=== PATIENT | female | born 1975 | race Caucasian/White ===

== ENCOUNTER 2020-01-10 17:24 | Emergency (ER) | payer OTHER, MEDICAID, SELFPAY ==
--- NOTE | ~2020-01-10 | XR_ITS ---
EXAMINATION: XR pelvis 1-2V DATE: 01/10/2020 18:35 INDICATION: Left hip pain post fall TECHNIQUE: An anteroposterior view of the pelvis was obtained. COMPARISON: CT abdomen and pelvis dated 02/27/2019 FINDINGS: Bone alignment is normal. No fracture. Joint spaces are normal. Soft tissues are unremarkable. IMPRESSION: 1. Negative pelvis radiographs. Reviewed, dictated and finalized at location A.
--- NOTE | ~2020-01-10 | CT_ITS ---
EXAMINATION: CT abdomen pelvis w con DATE: 01/10/2020 19:57 INDICATION: Pelvic pain TECHNIQUE: Computed tomography (CT) of the abdomen and pelvis was performed with 100 mL Omnipaque-350 intravenous contrast. Automated exposure control and iterative reconstruction technique were employe d. The dose-length product was 1010.95 mGy-cm. COMPARISON: 02/27/2019 FINDINGS: Mild atelectasis in the dependent lower lobes. Heart size is normal. No pericardial or pleural effusi on. Focal hepatic steatosis at the ligamentum teres. Gallbladder, spleen, pancreas, bilateral adrenal glands and kidneys are normal. Change of prior appendectomy with suture line at the tip of the cecum . There is mild colonic diverticulosis with a sigmoid predominance. There is no adjacent inflammator y change to suggest diverticulitis. No bowel obstruction. Bladder, anteverted uterus and right adnex a are normal. 3.1 cm left ovarian cyst. No free intraperitoneal gas or fluid. No pathologically enlar ged abdominal or pelvic lymphadenopathy. Moderate lower thoracic spondylosis. A few bone islands at t he bilateral proximal femurs. IMPRESSION: 1. No acute intra-abdominal/pelvic process. Reviewed, dictated and finalized at location A.
[2020-01-10 17:30] VITALS: BP 145/94; PULSE 95; RESP 16; TEMP 37.4; O2SAT 99
[2020-01-10] MEDS: DIAZEPAM 5 MG TABLET PO (18:21)
[2020-01-10 18:38] LABS: Add Urine Microscopic? YES; Appearance Urine Clear (Clear); Bacteria Urine Trace /hpf; Bilirubin Urine Negative (Negative); Blood Urine Negative (Negative); Color Urine Yellow (Yellow); Glucose Urine UA Negative (Negative); Ketones Urine 1+ mg/dL (Negative); Leukocyte Esterase Ur Negative LEU/UL (Negative); Mucus Urine Rare /lpf; Nitrate Urine Negative (Negative); Protein Urine Negative (Negative); RBC Urine 0-2 /hpf (0-2); Specific Grav Ur 1.014 (1.001-1.035); Squamous Epithelial Cell Urine Rare /hpf (Few); Urobilinogen Urine Negative mg/dL (<2.0); WBC Urine 0-3 /hpf
[2020-01-10 19:14] VITALS: BP 158/113; PULSE 79; RESP 16; TEMP 37.2; O2SAT 99
[2020-01-10 19:14] LABS: Amphetamine Screen Urine Negative (Negative); Barbiturate Screen Urine Negative (Negative); Benzodiazepines Screen Urine Negative (Negative); Cannabinoid Screen Urine Negative (Negative); Cocaine Screen Urine Negative (Negative); Methadone Screen Urine Negative (Negative); Opiate Screen Urine Negative (Negative); Phencyclidine Screen Urine Negative (Negative)
[2020-01-10 19:23] LABS: Basophils Absolute Auto 0.1 K/mm3 (0.0-0.1); Basophils Percent Auto 0.9 % (0.2-1.2); Eosinophils Absolute Auto 0.2 K/mm3 (0-0.3); Eosinophils Percent Auto 2.9 % (0-4.4); Hematocrit 40.6 % (37.0-47.0); Hemoglobin 13.2 g/dL (12.0-15.0); Immature Granulocyte Absolute 0.03 K/mm3 (0.00-0.031); Immature Granulocyte Percent A 0.5 % (0-0.5); Lymphocytes Absolute Auto 1.58 K/mm3 (0.9-3.2); Lymphocytes Percent Auto 28.2 % (18.3-44.2); Mean Corpuscular HGB Conc 32.5 g/dl (32-36); Mean Corpuscular Hemoglobin 30.1 pg (26-34); Mean Corpuscular Volume 92.7 fl (80-100); Mean Platelet Volume 9.5 fl (7.4-10.4); Monocytes Absolute Auto 0.4 K/mm3 (0.1-0.6); Monocytes Percent Auto 6.8 % (2.6-8.5); Neutrophils Absolute Auto 3.4 K/mm3 (1.3-6.7); Neutrophils Percent Auto 60.7 % (45.5-73.1); Platelet Count Result 278 k/mm3 (150-375); Red Blood Count 4.38 M/mm3 (4.2-5.4); Red Cell Distribution Width 12.4 % (11.5-14.5); White Blood Count 5.6 K/mm3 (4.5-10.0)
[2020-01-10 19:35] LABS: Alanine Aminotransferase 13 U/L (4-35); Albumin Level 4.3 g/dL (3.5-5.1); Alkaline Phosphatase 33 U/L (38-126); Aspartate Amino Transferase 19 U/L (14-36); Bilirubin,Total 0.3 mg/dL (0.2-1.3); Blood Urea Nitrogen 10 mg/dL (7-17); Calcium 9.3 mg/dL (8.4-10.2); Carbon Dioxide 25 mmol/L (22-30); Chloride 106 mmol/L (98-107); Estimated CRCL calculation 98 ml/min; Estimated Glomerular Filt Rate > 60; Glucose 80 mg/dL (65-105); Potassium 4.1 mmol/L (3.4-5.0); Sodium 137 mmol/L (137-145)
--- NOTE | 2020-01-10 20:07 | ED.GENADULT ---
HPI - General Adult General Chief complaint: Fall Stated complaint: upper back/left shoulder pain Time Seen by Provider: 01/10/20 17:25 Source: patient Mode of arrival: ambulatory Limitations: no limitations History of Present Illness HPI narrative: Patient is a 44-year-old female who presents to emergency department noting that on the she had fallen down 10 stairs injuring her back complaining of left shoulder thoracic and lumbar back pain that has remained constant since the fall was seen at that time had negative CT imaging of the thoracic and lumbar spine and the left shoulder. Patient was sent home on hydrocodone which she takes chronically for arthritis patient is followed by Dr. Patrick. Patient continues to have pain and was referred to the emergency department for continued pain patient notes she has nausea she attributes to the pain. Patient denies head injury syncope loss of consciousness hematuria. Patient on arrival notes continued severe pain and is followed by pain management with history of chronic pain Related Data Allergies Allergy/AdvReac Type Severity Reaction Status Date / Time aspirin Allergy Mild Verified 02/16/19 09:45 carisoprodol Allergy Mild Verified 02/16/19 09:45 celecoxib Allergy Mild Verified 02/16/19 09:45 codeine Allergy Mild Verified 02/16/19 09:45 cyclobenzaprine Allergy Mild Verified 02/16/19 09:45 ibuprofen Allergy Mild Verified 02/16/19 09:45 ketorolac Allergy Mild Verified 02/16/19 09:45 propoxyphene Allergy Mild Verified 02/16/19 09:45 rofecoxib Allergy Mild Verified 02/16/19 09:45 tramadol Allergy Mild Verified 02/16/19 09:45 KETOROLAC TROMETHAMINE Allergy Mild Uncoded 02/16/19 09:45 CYCLOBENZAPRINE HCL Allergy Unknown Uncoded 02/16/19 09:45 NAPROXEN SODIUM Allergy Unknown Uncoded 02/16/19 09:45 PROPOXYPHENE NAPSYLATE Allergy Unknown Uncoded 02/16/19 09:45 TRAMADOL HCL Allergy Unknown Uncoded 02/16/19 09:45 Review of Systems Review of Systems: All systems reviewed & are unremarkable except as noted in HPI and below PMFSH Past Medical History Medical History (Updated 01/10/20 @ 20:15 by Atif Livingston PA-C) section wound complication Chronic pain Obesity Social History Social History (Updated 06/04/20 @ 20:10 by Atif Livingston PA-C) Smoking status: Never smoker Gender identity (if verbalized by the patient): Female Exam Narrative: Exam Narrative: GENERAL: Well-appearing, well-nourished, and in no acute distress. HEAD: Normocephalic, atraumatic. EYES: PERRLA and EOMI. ENT: Nares clear, no rhinorrhea or epistaxis. Mucous membranes moist. Oropharynx without tonsillar hypertrophy exudate or other lesions. NECK: Supple. No adenopathy or masses. CHEST: Clear to auscultation. No respiratory distress. No wheezes rales or rhonchi HEART: Regular rate and rhythm. No murmur heard. Normal peripheral pulses. ABDOMEN: Soft, nontender, nondistended EXTREMITIES: Normal range of motion. No edema. Midline thoracic and lumbar tenderness. No cervical tenderness. No deformities noted SKIN: Warm, dry, no rash. NEURO: No focal deficits. Alert and oriented x3. Cranial nerves II through XII grossly intact. Motor and sensory intact and symmetrical in the extremities PSYCH: Normal mood and affect. Course Course Emergency Course: Patient aware of case findings treatment plan and diagnosis and discussion with primary care Consultations Consultation #1: Discussed case with primary care would like the patient to follow in clinic no changes to pain medications Date: 01/10/20 Time: 20:13 Vital Signs Vital signs: Vital Signs Temperature 99.4 F 01/10/20 17:30 Pulse Rate 95 01/10/20 17:30 Respiratory Rate 16 01/10/20 17:30 Blood Pressure 145/94 H 01/10/20 17:30 Pulse Oximetry 99 01/10/20 17:30 Temperature 99 F 01/10/20 19:14 Pulse Rate 79 01/10/20 19:14 Respiratory Rate 16 01/10/20 19:14 Blood Pressure 158/113 H 01/10/20 19:14
[2020-01-10 20:28] VITALS: BP 156/108; PULSE 73; RESP 16; O2SAT 97
--- NOTE | 2020-01-10 20:38 | PC.NURSE ---
Addendum entered by Jane Middleton RN 01/10/20 20:43: Pt does have healing bruise on her left inner forearm from pt stated fall from yesterday. Original Note: Pt given d/c instructions by charge nurse. A few minutes after she walked out a loud sound was heard at the nurses station from the pts room. Pt was found kneeling on the floor attempting to stand back up. Pt had already gotten dressed to leave and claimed that she felt dizzy from the pain and with her blood pressure being high, she fell. Pt denies hitting her head. She stated that her left arm was sore but denied the need to be re-evaluated by the dr or receiving an xray for the extremity. Pts arm showed no signs of bruising or deformity. 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
--- NOTE | 2020-01-10 23:37 | PC.NURSE ---
01/10/2020 @ 2100. Called to room per patient request. Patient c/o fall but declines to be reevaluated by EDP. After voicing her concerns, patient displayed areas of presumed injuries. Old bruising noted to left arm and to left buttock. No redness or swelling noted to either injured area. Patient provided wheelchair and assistance leaving the ER.
== END 2020-01-10 21:09 | disposition home or self-care (01) ==
PROVIDERS: Emergency Medicine Emergency Medical Services; Emergency Provider Emergency Medicine; PCP Family Medicine
DX: M54.6 Pain in thoracic spine (principal); M54.5 Low back pain; M19.90 Unspecified osteoarthritis, unspecified site; E66.9 Obesity, unspecified; Z68.33 Body mass index [BMI] 33.0-33.9, adult; W10.9XXA Fall (on) (from) unspecified stairs and steps, initial encounter
CPT/HCPCS: 36415; 72170; 74177; 80053; 80307; 81001; 85025; 96365; 99284; A9270; J0131; Q9967

== ENCOUNTER 2024-05-24 08:10 | Emergency (ER) | payer BC, MEDICAID, SELFPAY ==
[2024-05-24 08:20] VITALS: BP 134/94; PULSE 89; RESP 20; TEMP 37.7; O2SAT 100
--- NOTE | 2024-05-24 08:22 | ED.URI ---
HPI - URI/Sore Throat General Chief Complaint: Upper Respiratory Infection Stated Complaint: Fever/Sore Throat Time Seen by Provider: 05/24/24 08:22 Source: patient Mode of arrival: ambulatory Limitations: no limitations History of Present Illness HPI Narrative: 48-year-old female presents with complaint of headache, fatigue, fever, sore throat, nasal congestion starting yesterday. Patient states she is dizzy Generalized fatigue and short of breath when walking upstairs. Took ibuprofen prior to arrival. Denies nausea vomiting diarrhea. All systems reviewed and negative except as noted above. Related Data Home Medications Medication Instructions Recorded Confirmed levetiracetam 500 mg tablet 500 mg PO BID 05/24/24 05/24/24 lisinopril 10 mg tablet 10 mg PO DAILY 05/24/24 05/24/24 norethindrone acetate 1 mg-ethinyl 1 tablet PO DAILY 05/24/24 05/24/24 estradiol 20 mcg tablet Allergies Allergy/AdvReac Type Severity Reaction Status Date / Time aspirin Allergy Mild Other Verified 05/24/24 08:20 carisoprodol Allergy Mild Other Verified 05/24/24 08:20 celecoxib Allergy Mild Other Verified 05/24/24 08:20 codeine Allergy Mild Other Verified 05/24/24 08:20 cyclobenzaprine Allergy Mild Other Verified 05/24/24 08:20 ibuprofen Allergy Mild Other Verified 05/24/24 08:20 ketorolac Allergy Mild Other Verified 05/24/24 08:20 propoxyphene Allergy Mild Other Verified 05/24/24 08:20 rofecoxib Allergy Mild Other Verified 05/24/24 08:20 tramadol Allergy Mild Other Verified 05/24/24 08:20 KETOROLAC TROMETHAMINE Allergy Mild Other Uncoded 05/24/24 08:20 CYCLOBENZAPRINE HCL Allergy Unknown Other Uncoded 05/24/24 08:20 NAPROXEN SODIUM Allergy Unknown Other Uncoded 05/24/24 08:20 PROPOXYPHENE NAPSYLATE Allergy Unknown Other Uncoded 05/24/24 08:20 TRAMADOL HCL Allergy Unknown Other Uncoded 05/24/24 08:20 Review of Systems Review of Systems: CONSTITUTIONAL: reports fever, chills, or sweats. EYES: Denies visual changes, redness, or discharge. ENT: reports rhinorrhea, congestion, sore throat. Denies otalgia. CARDIOVASCULAR: Denies chest pain, palpitations, or edema. RESPIRATORY: Denies cough or dyspnea. GASTROINTESTINAL: Denies abdominal pain, nausea, vomiting, or diarrhea. GENITOURINARY: Denies dysuria or hematuria. SKIN: Denies rash or itching. MUSCULOSKELETAL: Denies back pain, joint pain, or myalgia. NEUROLOGIC: Denies headache, numbness, or weakness. PSYCHIATRIC: Denies anxiety or depression. All other systems reviewed are negative, except as documented in HPI. [facility] Past Medical History Medical History (Updated 05/24/24 @ 08:49 by Tracy Donnelly, SHIRLEY) section wound complication Chronic pain Obesity Social History Social History (Updated 01/10/20 @ 20:10 by Atif Livingston, MARQUES) Smoking status: Never smoker Gender identity (if verbalized by the patient): Female Comments At time of signature, agree with nursing past medical, surgical, social and family history. There is no relevant family history pertinent to the presenting complaint. Exam Narrative: GENERAL: This is a well-nourished, well-developed patient, Ill-appearing but in no acute distress HEAD: normocephalic, atraumatic. EYES: PERRL. Sclera clear/white. Vision is grossly intact. EARS: External ears normal, auditory canals clear and without drainage, TMs normal without perforation. Hearing grossly intact. NOSE: External nose normal with no obvious nasal discharge, nares without redness, no rhinorrhea. THROAT: Mucous membranes moist, erythema to posterior pharynx without swelling or exudates. NECK: Neck supple, non-tender without lymphadenopathy, masses or thyromegaly. CARDIOVASCULAR: Regular rate and rhythm without murmurs, gallops, or rubs. RESPIRATORY: Clear to auscultation. Breath sounds equal bilaterally. No wheezes, rales, or rhonchi. SKIN: warm, Dry, intact with no suspicious lesions or rash, good texture and turgor. NEURO: aw
[2024-05-24 08:44] LABS: EDCOVIDSCREEN Negative (Negative); EDINFLUASCREEN Negative (Negative); EDINFLUBSCREEN Negative (Negative); EDSTREPNEGPOS1 Positive (Negative)
== END 2024-05-24 08:55 | disposition home or self-care (01) ==
PROVIDERS: Emergency Provider Nurse Practitioner Family; PCP Family Medicine
DX: J02.0 Streptococcal pharyngitis (principal); Z20.822 Contact with and (suspected) exposure to COVID-19; E66.9 Obesity, unspecified; Z68.36 Body mass index [BMI] 36.0-36.9, adult
CPT/HCPCS: 87426; 87804; 87880; 99213; G0463